=== PATIENT | female | born 1985 | race Caucasian/White ===

== ENCOUNTER 2016-09-12 17:42 | Emergency (ER) | payer SELFPAY ==
[2016-09-12 17:44] VITALS: BMI 24.4
[2016-09-12 17:47] VITALS: BP 115/75; PULSE 59; RESP 17; TEMP 98.6; O2SAT 100
[2016-09-12] MEDS ORDERED: Lidocaine 1% Inj (20ml) ONE (18:04)
--- NOTE | 2016-09-12 18:43 | ED PDOC ---
Arrival/HPI - General Chief Complaint: ENT Problem Time Seen by Provider: 09/12/16 18:00 Historian: Patient - History of Present Illness Narrative History of Present Illness (Text): 09/12/16 18:00 This 31 yo female presents to this ED c/o right ear lobe FB x 1 days, and decreased hearing right ear x 1 week. Time/Duration: Other (see hpi) Context: Home Past Medical History - Provider Review Nursing Documentation Reviewed: Yes - Infectious Disease Hx of Infectious Diseases: None - Psychiatric Hx Substance Use: No - Anesthesia Hx Anesthesia: No Family/Social History - Physician Review Nursing Documentation Reviewed: Yes Family/Social History: No Known Family HX Smoking Status: Never Smoked Hx Alcohol Use: No Hx Substance Use: No Allergies/Home Meds Allergies/Adverse Reactions: Allergies No Known Allergies Allergy (Verified 09/12/16 17:44) Review of Systems - Review of Systems Constitutional: Normal. absent: Fatigue, Weight Change, Fevers Eyes: Normal ENT: Other (see hpi) Respiratory: Normal. absent: SOB, Cough, Sputum, Wheezing Cardiovascular: Normal. absent: Chest Pain, Palpitations Gastrointestinal: Normal. absent: Abdominal Pain, Nausea, Vomiting Genitourinary Female: Normal. absent: Dysuria, Frequency Musculoskeletal: Normal Skin: Normal. absent: Rash Neurological: Normal Endocrine: Normal Hemo/Lymphatic: Normal Psychiatric: Normal Physical Exam Vital Signs Temp Pulse Resp BP Pulse Ox 09/12/16 17:46 98.6 F 59 L 17 115/75 100 Temperature: Afebrile Blood Pressure: Normal Pulse: Regular Respiratory Rate: Normal Appearance: Positive for: Well-Appearing, Non-Toxic, Comfortable Pain Distress: None Mental Status: Positive for: Alert and Oriented X 3 - Systems Exam Head: Present: Atraumatic, Normocephalic Pupils: Present: PERRL Extroacular Muscles: Present: EOMI Conjunctiva: Present: Normal Ears: Present: Other ((+) right ear lobe FB. (+) right ear canal cerumen impaction) Mouth: Present: Moist Mucous Membranes Neck: Present: Normal Range of Motion Respiratory/Chest: Present: Clear to Auscultation, Good Air Exchange. No: Respiratory Distress, Accessory Muscle Use Cardiovascular: Present: Regular Rate and Rhythm, Normal S1, S2. No: Murmurs Abdomen: Present: Normal Bowel Sounds. No: Tenderness, Distention, Peritoneal Signs Back: Present: Normal Inspection Upper Extremity: Present: Normal Inspection. No: Cyanosis, Edema Lower Extremity: Present: Normal Inspection. No: Edema Neurological: Present: GCS=15, CN II-XII Intact, Speech Normal Skin: Present: Warm, Dry, Normal Color. No: Rashes Psychiatric: Present: Alert, Oriented x 3, Normal Insight, Normal Concentration Medical Decision Making ED Course and Treatment: 09/12/16 18:43 Re-evaluation. Patient feels better. Discussed results and plan with patient who expresses understanding. All questions answered and there is agreement with the plan to discharge home with instructions. Patient stable for discharge. Return if symptoms persist or worsen. Re-evaluation Time: 18:43 Reassessment Condition: Re-examined, Improved - Medication Orders Current Medication Orders: Discontinued Medications Lidocaine HCl (Lidocaine 1% (20ml)) Confirm Administered Dose 20 ml .ROUTE .[place] ONE Stop: 09/12/16 18:05 Disposition/Present on Arrival - Present on Arrival Any Indicators Present on Arrival: No History of DVT/PE: No History of Uncontrolled Diabetes: No Urinary Catheter: No History of Decub. Ulcer: No History Surgical Site Infection Following: None - Disposition Have Diagnosis and Disposition been Completed?: Yes Diagnosis: Foreign body in soft tissue, Impacted cerumen of right ear, Otitis externa Disposition: HOME/ ROUTINE Disposition Time: 18:44 Patient Plan: Discharge Patient Problems: Current Active Problems Problem Status Onset Foreign body in soft tissue Acute Impacted cerumen of right ear Acute Otitis externa Acute Condition: GOOD Discharge Instructions (ExitCare): Cerumen Impaction (ED), Soft Tissue Foreign Body (ED) Additional Instructions: Call private doctor for follow up visit in 1-2 days. Take medication as instructed. Return to emergency if symptoms worsen Prescriptions: Cephalexin [cephalexin] 500 mg PO TID #21 cap Neomycin/Polymyxin/Hydrocort [Cortisporin Otic Soln] 4 drop OD TID #1 bottle Referrals: [facility] [Outside] - Follow up with primary [facility] [Outside] - Follow up with primary
== END 2016-09-12 18:50 | disposition home or self-care (01) ==
LOC: ED 17:42
DX: S00.451A Superficial foreign body of right ear, initial encounter (principal); X58.XXXA Exposure to other specified factors, initial encounter; H61.21 Impacted cerumen, right ear; H60.90 Unspecified otitis externa, unspecified ear